=== PATIENT | female | born 1960 | race Caucasian/White ===

== ENCOUNTER → 2016-10-03 | Outpatient (CLI) | payer BC ==
--- NOTE | 2016-10-03 16:02 | MR ---
MR brain with and without contrast HISTORY: G 44.5, stabbing headaches Correlation to outside report brain MRI dated 08 January 2014 Multiplanar multisequence and postcontrast images through the brain following 15 cc MultiHance IV. There is no restricted diffusion. No hemorrhage or hydrocephalus evident. Corpus callosum, pituitary, cervical medullary junction, cerebellopontine angles are normal. There are normal vascular flow void s. Orbits show symmetric appearance. Mild mucosal disease present within the frontal and ethmoidal si nus. Approximately 5-6 white matter hyperintensities are present in the subcortical, juxtacortical an d periventricular distribution. These lesions are stable. Wispy enhancement in the left temporal lobe is again noted compatible with venous angioma and is stable. IMPRESSION: Small venous angioma, stable white matter foci of demyelination. No acute abnormality is evident.
== END | disposition home or self-care (01) ==
LOC: RADMRIMAIN 10:08
PROVIDERS: ATTEND Internal Medicine Geriatric Medicine
DX: G37.9 Demyelinating disease of central nervous system, unspecified (principal); Q28.3 Other malformations of cerebral vessels
CPT/HCPCS: 70553; A9577

== ENCOUNTER → 2017-05-09 | Outpatient (CLI) | payer BC ==
--- NOTE | 2017-05-10 13:04 | CONS ---
DATE OF CONSULTATION: 05/09/2017 REASON FOR CONSULTATION: Amnesia, daytime sleepiness and fatigue. This is a very pleasant 57-year-old female patient who follows with Dr. Palmer as per primary care physician. She has a history of seasonal allergies, chronic sinusitis and an episode of amnesia. She has been followed with a neurologist in the [place] area as well. Approximately November 2013 after a flight to [place], [place], the patient fell asleep and slept soundly through the night which she usually wakes up two to three times to use the bathroom. She had no recollection the night before and she was quite disoriented, had trouble reorientating and was taken to the emergency room and was admitted for two days here. She did have a workup. No cerebrovascular accident, no transient ischemic attack, no carotid disease. She has also had follow-up since that time, CT scans and MRI of the brain revealed no acute abnormalities in September 2016. EEGs according to the patient had revealed no seizure activity. She was referred here for possible sleep disorder. She does have an Bayamon score of 12, stating she has episodes of dozing while sitting and reading or watching t.v. She has had falling asleep in car as a passenger and she has laid down to rest in the afternoon. She complains of snoring, constant fatigue and waking up frequently. Past medical history is seasonal allergies, chronic sinusitis and one episode of disorientation/amnesia. Surgical history is sinus surgery. Family history is noncontributory. Social history: The patient denies any excessive alcohol use or smoking. No illicit drug use. Allergies: No known drug allergies. Medications are nil. REVIEW OF SYSTEMS: 14 point review of systems was conducted all negative other than as mentioned in the HPI. On physical examination, her weight is 156 pounds. She is 5 feet 4 inches. Her BMI is 26.3. Vital signs reveal blood pressure 132/88. Heart rate 70. Respiratory rate 16. Temperature 98.2. She is 97% O2 saturations on room air. Her head is Normocephalic. Sclerae anicteric. She has known crowding of the posterior pharynx. Neck is supple. Trachea is midline. No JVD. Her lungs are clear anteriorly and posteriorly. Her heart is regular, S1, S2. Her abdomen is soft , nontender. Bowel sounds are present. There is no significant peripheral edema. No clubbing. No cyanosis. Peripheral pulses intact. INVESTIGATIONS: Bayamon sleep scale of 12. IMPRESSION: 1. Amnesia, suspect transient global amnesia, one episode in November 2013 with full neurological workup negative and desire to rule out obstructive sleep apnea. 2. Chronic sinusitis. 3. Seasonal allergies. PLAN: The patient was seen and evaluated by Dr. Schneider. He is recommending a home sleep study to rule out any significant sleep apnea. Based on her history , this seems less likely but because of the negative neurological workup thus far, we will go ahead and perform the study. If positive, she will be seen back in our office for evaluation and CPAP titration if necessary. She is encouraged to call sooner with any recurrence of symptoms or other questions or concerns. FRANKIE
== END ==
LOC: SLEEP 15:17
PROVIDERS: ATTEND Internal Medicine Critical Care Medicine
DX: R41.3 Other amnesia (principal); J32.9 Chronic sinusitis, unspecified; J30.2 Other seasonal allergic rhinitis
CPT/HCPCS: 99211

== ENCOUNTER → 2017-08-08 | Outpatient (CLI) | payer BC ==
--- NOTE | 2017-08-08 19:04 | PN ---
PROGRESS NOTE This is a 57-year-old female patient coming in to discuss results of the sleep study. The patient initially was referred to me looking for any obstructive sleep apnea. Her main concern was that she had an episode of transient global amnesia and she was wondering whether this was related to any form of sleep breathing disorder. A home sleep study was conducted and the patient was found to have mild JACKIE with an AHI of 12.8. There were no significant nocturnal oxygen desaturations. I discussed the results with the patient at length on today's evaluation. I explained to her the findings. The findings are essentially mild; however, can contribute to chronic fatigue and tiredness and sleepiness. Yet, there is no evidence that this type of sleep apnea should impair this patient's memory. The patient had many questions, which I answered all to her satisfaction. She furthermore told me that she was going to move to [place] and she is not ready to make any commitments for CPAP therapy at this point while staying in [place], knowing that her stay in [place] is going to be brief. I think it is very reasonable to consider to be treated at least on a trial basis with CPAP at a later stage. Her disease is mild as mentioned with an AHI of 12.3. BP is 118/71, pulse 80, respirations 16, temperature 97.6, but BMI is 26.4, weight is 154, height is 5 feet 4 inches. GENERAL APPEARANCE: Calm, comfortable. HEAD: Atraumatic, normocephalic. NECK: Supple. There is no JVD. No goiter or neck mass. LUNGS: Clear to auscultation. HEART: Sounds regular rhythm. Normal S1, S2. No S3. S4. No murmurs. ABDOMEN: Soft, nontender. No organomegaly. EXTREMITIES: No edema. No cyanosis or clubbing. SKIN: Negative for ulcerations, wounds or cellulitis. PSYCH: Negative for anxiety or depression. NEURO: Negative for any focal neurological deficits. IMPRESSION: 1. Mild obstructive sleep apnea an apnea-hypopnea index of 12.3. 2. Episode of transient global amnesia not related to obstructive sleep apnea. PLAN: Would suggest for this patient to have a trial of CPAP at a later stage. She will be moving to [place] and this can be pursued further with her physicians in the [facility]. We discussed issues related to sleep hygiene, which she is going to implement. She is happy with the discussion and I gave her a copy of the sleep study to be followed up with her physicians after she moves to [place]. No CPAP will be offered to this patient here in [place]. DEBRA / MOIZ: [id number] /
== END | disposition home or self-care (01) ==
LOC: SLEEP 13:35
PROVIDERS: ATTEND Internal Medicine Critical Care Medicine
DX: G47.33 Obstructive sleep apnea (adult) (pediatric) (principal); G45.4 Transient global amnesia